=== PATIENT | male | born 1950 | race Hispanic/Latino ===

== ENCOUNTER 2022-03-16 07:14 | Observation (INO) | payer OTHER ==
[2022-03-11 13:31] LABS: INR 0.96 (0.85-1.15); PROTHROMBIN TIME 10.5 SEC (9.6-11.6)
[2022-03-11 13:32] LABS: PARTIAL THROMBOPLASTIN TIME 27.6 SEC (26.3-35.5)
[2022-03-11 13:54] LABS: BASOPHILS % (AUTO) 1.3 % (0.0-5.0); HEMATOCRIT 40.3 % (42-54); LYMPHOCYTES % (AUTO) 29.2 % (21.0-51.0); MEAN CORPUSCULAR HGB CONC 34.2 g/dL (32.0-36.0); MEAN CORPUSCULAR VOLUME 90.6 fL (79-99); MONOCYTES % (AUTO) 7.7 % (3.0-13.0); NEUTROPHILS % (AUTO) 60.5 % (40.0-77.0); PLATELET COUNT (AUTO) 211 K/uL (130-400); RED BLOOD CELL COUNT(AUTO) 4.45 MIL/uL (4.50-6.20); RED CELL DISTRIBUTION WIDTH 12.8 % (11.0-15.5); WHITE BLOOD COUNT (AUTO) 7.9 K/uL (4.8-10.8)
[2022-03-15 11:20] VITALS: BP 165/81
[~2022-03-16] VITALS: Ht 167.6 cm; Wt 75.9 kg
[2022-03-16] VITALS (23 sets, daily range): BP systolic 115–142; BP diastolic 54–100
[2022-03-16] MEDS: TRANEXAMIC ACID 1000MG/10ML IV SCH ×2 (06:00→13:43)
[~2022-03-16 07:14] MED LIST: AEC81 PO; ATOR10 PO; DILT180C47 PO; LACTATED RINGERS 1000ML 1,000 ML IV SCH; METF-444 PO
[2022-03-16] MEDS ORDERED: 0.9%NACL 1000ML 1,000 ML IV ONE (07:57)
[2022-03-16] MEDS: CEFAZOLIN SODIUM 1 GM VIAL IVP SCH ×2 (09:23→13:33)
[2022-03-16] MEDS: ACETAMINOPHEN 500 MG TABLET PO SCH ×3 (09:30→23:44)
[2022-03-16] MEDS ORDERED: MORPHINE 4 MG SYG IVP PRN (09:30)
[2022-03-16] MEDS ORDERED: KCL 20 MEQ ERTAB PO PRN (09:30)
[2022-03-16] MEDS: 0.9%NACL 1000ML 1,000 ML IV SCH ×2 (09:30→19:39)
[2022-03-16] MEDS ORDERED: LIDOCAINE HCL-MPF 1% 2ML VIAL IV PRN (09:30)
[2022-03-16] MEDS ORDERED: POTASSIUM CHLORIDE 20MEQ/100ML 100 ML IV PRN (09:30)
[2022-03-16] MEDS ORDERED: HYDROCODONE/ACETAMINOPHEN 10/325 MG TAB PO PRN (09:30)
[2022-03-16] MEDS ORDERED: KETOROLAC 15MG/ML VIAL (15MG/ML) IV PRN (09:30)
[2022-03-16] MEDS ORDERED: HYDROCODONE/ACETAMINOPHEN 5/325 MG TAB PO PRN (09:30)
[2022-03-16] MEDS ORDERED: ONDANSETRON 4MG INJ IVP PRN (09:30)
[2022-03-16] MEDS ORDERED: POTASSIUM CHLORIDE 10% ELIXIR 20 MEQ/15 ML UDCUP PO PRN (09:30)
[2022-03-16] MEDS: INSULIN HUMULIN R 100 UNIT/ML 3ML SQ SCH ×3 (11:30→20:18)
[2022-03-16] MEDS: TRAMADOL HCL 50 MG TABLET PO SCH ×3 (12:00→23:44)
[2022-03-16] MEDS: METFORMIN HCL 500 MG TABLET PO SCH ×2 (12:00→17:00)
[2022-03-16] MEDS ORDERED: PROPOFOL 10 MG/ML 20ML VIAL IV ONE ×2 (12:47→14:15)
[2022-03-16] MEDS ORDERED: MIDAZOLAM HCL 1 MG/ML 2ML VIAL ONE (12:47)
[2022-03-16] MEDS ORDERED: FENTANYL CITRATE PF 50 MCG/1 ML 2ML VIAL ONE ×2 (12:47→15:34)
[2022-03-16] MEDS ORDERED: LIDOCAINE PF 100MG/5ML (2%) SYRINGE 5ML ONE (12:48)
[2022-03-16] MEDS ORDERED: ROCURONIUM 10MG/1ML SYR 10 MG/ML ML ONE (12:49)
[2022-03-16] MEDS ORDERED: DEXAMETHASONE SOD PHOSPHATE 10MG/ML 1ML VIAL ONE (12:50)
[2022-03-16] MEDS ORDERED: ONDANSETRON 4MG INJ ONE (12:51)
[2022-03-16] MEDS ORDERED: ROPIVACAINE 0.5% 5MG/ML 30ML IJ ONE (12:53)
[2022-03-16] MEDS ORDERED: DEXAMETHASONE SOD PHOSPHATE 4 MG/ML 1ML VIAL ONE (12:54)
[2022-03-16] MEDS ORDERED: TRANEXAMIC ACID 1000MG/10ML ONE (13:26)
[2022-03-16] MEDS ORDERED: EPHEDRINE SULFATE 50 MG/ML AMPULE ONE (13:55)
[2022-03-16] MEDS ORDERED: CEFAZOLIN SODIUM 1 GM VIAL IVP SCH (14:30)
[2022-03-16] MEDS ORDERED: GLYCOPYRROLATE 1 MG/5 ML SYRINGE ONE (15:29)
[2022-03-16] MEDS ORDERED: NEOSTIGMINE 5MG/5ML SYR IV ONE (15:29)
[2022-03-16] MEDS ORDERED: MORPHINE 2 MG SYG ONE (16:26)
[2022-03-16] MEDS: ASPIRIN 81 MG EC TAB PO SCH (19:39)
[2022-03-16] MEDS: FAMOTIDINE 20MG TAB PO SCH (19:39)
[2022-03-17 00:16] VITALS: BP 127/65
[2022-03-17 03:48] LABS: HEMATOCRIT 35.8 % (42-54); MEAN CORPUSCULAR HEMOGLOBIN 30.3 pg (27.0-33.0); MEAN CORPUSCULAR HGB CONC 34.1 g/dL (32.0-36.0); MEAN CORPUSCULAR VOLUME 89.1 fL (79-99); RED BLOOD CELL COUNT(AUTO) 4.02 MIL/uL (4.50-6.20); RED CELL DISTRIBUTION WIDTH 12.4 % (11.0-15.5); WHITE BLOOD COUNT (AUTO) 14.6 K/uL (4.8-10.8)
[2022-03-17 03:56] LABS: CREATININE 1.1 mg/dL (0.5-1.5); POTASSIUM 4.1 mmol/L (3.5-5.1)
[2022-03-17] MEDS: 0.9%NACL 1000ML 1,000 ML IV SCH (04:06)
[2022-03-17 04:53] VITALS: BP 137/70
[2022-03-17] MEDS: TRAMADOL HCL 50 MG TABLET PO SCH ×2 (05:38→12:29)
[2022-03-17] MEDS: INSULIN HUMULIN R 100 UNIT/ML 3ML SQ SCH ×2 (06:23→12:32)
[2022-03-17] MEDS: ASPIRIN 81 MG EC TAB PO SCH (07:34)
[2022-03-17] MEDS: FAMOTIDINE 20MG TAB PO SCH (07:35)
[2022-03-17] MEDS: METFORMIN HCL 500 MG TABLET PO SCH ×2 (07:35→12:29)
[2022-03-17] MEDS: ACETAMINOPHEN 500 MG TABLET PO SCH (07:41)
[2022-03-17] MEDS ORDERED: DILTIAZEM 180MG SR CAP PO SCH (09:00)
[2022-03-17] MEDS ORDERED: POLYETHYLENE GLYCOL 3350 17 GM POWD.PACK PO SCH (09:00)
[2022-03-17 09:18] VITALS: BP 158/75
[2022-03-17 12:27] VITALS: BP 162/73
[2022-03-19] MEDS ORDERED: BISACODYL 10 MG SUPP.RECT RC PRN (09:30)
== END 2022-03-17 15:25 | disposition home or self-care (01) ==
LOC: DAH 07:14 → DAHIP 07:15 → 4BH 15:29
PROVIDERS: ADMIT Orthopaedic Surgery; ATTEND Orthopaedic Surgery
DX: M17.11 Unilateral primary osteoarthritis, right knee (principal); Z20.822 Contact with and (suspected) exposure to COVID-19; E11.9 Type 2 diabetes mellitus without complications; Z79.899 Other long term (current) drug therapy; Z79.82 Long term (current) use of aspirin; Z79.84 Long term (current) use of oral hypoglycemic drugs; Z90.49 Acquired absence of other specified parts of digestive tract
CPT/HCPCS: 80048 ×2; 85025; 85610; 85730; 87426; 36415 ×2; 93005; 87641; 27447; 96374; 96375; 76942; 64447; 82948 ×4; 97039 ×2; 85027; 97161; 97116 ×2; 97530; J1100 ×2; G0378 ×25; J7030 ×2; C1776; J3010 ×2; J0690 ×2; J3490 ×3; J2710; J2001; J2250; J2704 ×2; J2405; J2270; J2795; G0168; A4649 ×3; A4930; A6255; A6254; A4215; A4223; A4657; A4222; A4221; A4663; J1815

== ENCOUNTER 2022-08-26 06:04 | Observation (INO) | payer OTHER ==
[2022-08-25 16:08] LABS: EOSINOPHILS % (AUTO) 0.9 % (0.0-8.0); HEMATOCRIT 41.3 % (42-54); LYMPHOCYTES % (AUTO) 30.1 % (21.0-51.0); MEAN CORPUSCULAR HGB CONC 33.4 g/dL (32.0-36.0); MEAN CORPUSCULAR VOLUME 89.8 fL (79-99); MONOCYTES % (AUTO) 8.8 % (3.0-13.0); NEUTROPHILS % (AUTO) 58.8 % (40.0-77.0); PLATELET COUNT (AUTO) 232 K/uL (130-400); RED CELL DISTRIBUTION WIDTH 12.9 % (11.0-15.5); WHITE BLOOD COUNT (AUTO) 7.9 K/uL (4.8-10.8)
[2022-08-25 16:16] LABS: CREATININE 1.3 mg/dL (0.5-1.5); POTASSIUM 4.6 mmol/L (3.5-5.1)
[2022-08-25 16:18] VITALS: BP 157/77
[2022-08-25 16:20] LABS: INR 0.95 (0.85-1.15); PROTHROMBIN TIME 10.4 SEC (9.6-11.6)
[2022-08-25 16:21] LABS: PARTIAL THROMBOPLASTIN TIME 28.1 SEC (26.3-35.5)
[2022-08-26] VITALS (25 sets, daily range): BP systolic 99–149; BP diastolic 39–74
[~2022-08-26] VITALS: Ht 170.2 cm; Wt 74.8 kg
[2022-08-26] MEDS: CEFAZOLIN SODIUM 2 GM VIAL IVPB SCH ×2 (06:00→10:10)
[~2022-08-26 06:04] MED LIST changes: +TRANEXAMIC ACID 1000MG/10ML IJ SCH
[2022-08-26] MEDS ORDERED: 0.9%NACL 1000ML 1,000 ML IV ONE (06:54)
[2022-08-26] MEDS ORDERED: ROPIVICAINE 250MG+KETOROLAC 15MG+EPINEPHRINE 0.3+CLONIDINE 80 IV PRN ×5 (08:00)
[2022-08-26] MEDS ORDERED: FAMOTIDINE 20MG VIAL IV ONE (08:05)
[2022-08-26] MEDS ORDERED: TRANEXAMIC ACID 1000MG/10ML ONE (08:06)
[2022-08-26] MEDS ORDERED: HYDROMORPHONE 1 MG INJ ONE (08:06)
[2022-08-26] MEDS ORDERED: SUCCINYLCHOLINE 200MG/10ML SYR ONE (08:10)
[2022-08-26] MEDS ORDERED: LIDOCAINE PF 100MG/5ML (2%) SYRINGE 5ML ONE (08:10)
[2022-08-26] MEDS ORDERED: ROCURONIUM 10MG/1ML SYR 10 MG/ML ML ONE ×2 (08:11→11:40)
[2022-08-26] MEDS ORDERED: GLYCOPYRROLATE 1 MG/5 ML SYRINGE ONE (08:11)
[2022-08-26] MEDS ORDERED: FENTANYL CITRATE PF 50 MCG/1 ML 2ML VIAL ONE ×3 (08:11→11:14)
[2022-08-26] MEDS ORDERED: PROPOFOL 10 MG/ML 20ML VIAL IV ONE (08:11)
[2022-08-26] MEDS ORDERED: MIDAZOLAM HCL 1 MG/ML 2ML VIAL ONE (09:55)
[2022-08-26] MEDS ORDERED: ONDANSETRON 4MG INJ ONE (10:48)
[2022-08-26] MEDS ORDERED: NEOSTIGMINE 5MG/5ML SYR IV ONE (11:49)
[2022-08-26] MEDS ORDERED: FERROUS FUMARATE 324 MG TABLET PO PRN (12:30)
[2022-08-26] MEDS ORDERED: POTASSIUM CHLORIDE 20MEQ/100ML 100 ML IV PRN (12:30)
[2022-08-26] MEDS ORDERED: HYDROCODONE/ACETAMINOPHEN 5/325 MG TAB PO PRN (12:30)
[2022-08-26] MEDS ORDERED: LIDOCAINE HCL-MPF 1% 2ML VIAL IV PRN (12:30)
[2022-08-26] MEDS ORDERED: MORPHINE 4 MG SYG IVP PRN (12:30)
[2022-08-26] MEDS ORDERED: KCL 20 MEQ ERTAB PO PRN (12:30)
[2022-08-26] MEDS ORDERED: POTASSIUM CHLORIDE 10% ELIXIR 20 MEQ/15 ML UDCUP PO PRN (12:30)
[2022-08-26] MEDS ORDERED: ONDANSETRON 4MG INJ IVP PRN (12:30)
[2022-08-26] MEDS ORDERED: HYDROCODONE/ACETAMINOPHEN 10/325 MG TAB PO PRN (12:30)
[2022-08-26] MEDS: 0.9%NACL 1000ML 1,000 ML IV SCH ×2 (12:30→17:10)
[2022-08-26] MEDS: ACETAMINOPHEN 1,000 MG/100 ML VIAL IV SCH ×2 (13:15→19:21)
[2022-08-26] MEDS: INSULIN HUMULIN R 100 UNIT/ML 3ML SQ SCH ×2 (16:30→20:43)
[2022-08-26] MEDS: IBUPROFEN 800MG + NS 250ML IV SCH (17:09)
[2022-08-26] MEDS: METFORMIN HCL 500 MG TABLET PO SCH (17:13)
[2022-08-26] MEDS: CEFAZOLIN SODIUM 1 GM VIAL IVPB SCH (17:13)
[2022-08-26] MEDS: TRAMADOL HCL 50 MG TABLET PO SCH ×2 (17:14→23:55)
[2022-08-26] MEDS: ASPIRIN 81 MG EC TAB PO SCH (20:05)
[2022-08-26] MEDS: FAMOTIDINE 20MG TAB PO SCH (20:05)
[2022-08-27] VITALS: BP 149/79
[2022-08-27] MEDS: IBUPROFEN 800MG + NS 250ML IV SCH ×2 (00:48→09:29)
[2022-08-27] MEDS: CEFAZOLIN SODIUM 1 GM VIAL IVPB SCH (00:52)
[2022-08-27] MEDS: ACETAMINOPHEN 1,000 MG/100 ML VIAL IV SCH (02:39)
[2022-08-27 04:00] VITALS: BP 125/73
[2022-08-27 04:15] LABS: HEMATOCRIT 34.8 % (42-54); MEAN CORPUSCULAR HEMOGLOBIN 30.4 pg (27.0-33.0); MEAN CORPUSCULAR HGB CONC 33.3 g/dL (32.0-36.0); MEAN CORPUSCULAR VOLUME 91.1 fL (79-99); RED BLOOD CELL COUNT(AUTO) 3.82 MIL/uL (4.50-6.20); RED CELL DISTRIBUTION WIDTH 12.8 % (11.0-15.5); WHITE BLOOD COUNT (AUTO) 11.7 K/uL (4.8-10.8)
[2022-08-27 05:04] LABS: CREATININE 1.1 mg/dL (0.5-1.5); POTASSIUM 3.9 mmol/L (3.5-5.1)
[2022-08-27] MEDS: INSULIN HUMULIN R 100 UNIT/ML 3ML SQ SCH ×2 (05:13→11:30)
[2022-08-27] MEDS: TRAMADOL HCL 50 MG TABLET PO SCH ×2 (06:01→12:48)
[2022-08-27 07:24] VITALS: BP 138/74
[2022-08-27] MEDS: FAMOTIDINE 20MG TAB PO SCH (08:21)
[2022-08-27] MEDS: METFORMIN HCL 500 MG TABLET PO SCH ×2 (08:21→12:48)
[2022-08-27] MEDS: ASPIRIN 81 MG EC TAB PO SCH (08:22)
[2022-08-27] MEDS: 0.9%NACL 1000ML 1,000 ML IV SCH (08:30)
[2022-08-27] MEDS ORDERED: DILTIAZEM 180MG SR CAP PO SCH (09:00)
[2022-08-27] MEDS ORDERED: POLYETHYLENE GLYCOL 3350 17 GM POWD.PACK PO SCH (09:00)
[2022-08-27 11:28] VITALS: BP 139/67
[2022-08-29] MEDS ORDERED: BISACODYL 10 MG SUPP.RECT RC PRN (12:30)
== END 2022-08-27 16:40 | disposition home or self-care (01) ==
LOC: DAH 06:04 → DAHIP 06:05 → DAH 06:05 → 4AH 14:00
PROVIDERS: ADMIT Orthopaedic Surgery; ATTEND Orthopaedic Surgery
DX: M17.12 Unilateral primary osteoarthritis, left knee (principal); Z20.822 Contact with and (suspected) exposure to COVID-19; M21.062 Valgus deformity, not elsewhere classified, left knee; M24.562 Contracture, left knee; E11.9 Type 2 diabetes mellitus without complications; I10 Essential (primary) hypertension; Z79.899 Other long term (current) drug therapy
CPT/HCPCS: 0055T; 27447; 36415; 80048; 82948; 85025; 85027; 85610; 85730; 87426; 87641; 93005; 96365; 96366; 96375; 96376; 97039; G0378; J0171; J0330; J0690; J0735; J1170; J1741; J1885; J2001; J2250; J2270; J2405; J2704; J2710; J2795; J3010; J3490; J7030; J7120